=== PATIENT | male | born 1990 | race Hispanic/Latino ===

== ENCOUNTER 2018-04-13 21:49 | Inpatient (IN) | payer MEDICAID, SELFPAY ==
[2018-04-13 22:57] LABS: #Eosinphils 0.2 thou/uL (0.0-0.7); #Lymphocytes 1.1 thou/uL (1.20-3.40); #Monocytes 0.3 thou/uL (0.11-0.59); #Neutrophils 3.6 thou/uL (1.40-6.50); %Basophils 0.7 % (0.0-1.0); %Eosinophils 2.9 % (0.0-10.0); %Lymphocytes 21.2 % (21.0-51.0); %Monocytes 5.7 % (0.0-10.0); %Neutrophils 69.5 % (42.0-75.0); Mean Corpuscular HGB CONC 34.4 g/dL (32.0-36.0); Mean Corpuscular Hemoglobin 29.4 pg (27.0-31.0); Mean Corpuscular Volume 85.3 fL (78.0-98.0); Mean Platelet Volume 9.1 fL (7.4-10.4); PLT Morphology Comment Appears Decreased; Platelet Count 68 thou/uL (130-400); RBC Distribution Width 12.9 % (11.5-14.5); White Blood Cell (WBC) Count 5.2 thou/uL (4.8-10.8)
[2018-04-13 23:06] LABS: ALT (SGPT) 8 U/L (8-55); AST (SGOT) 9 U/L (5-34); Albumin 3.7 g/dL (3.5-5.0); Alkaline Phosphatase 68 U/L (40-150); Anion Gap 27 mmol/L (10-20); Bilirubin, Total 0.5 mg/dL (0.2-1.2); Calcium 7.4 mg/dL (7.8-10.44); Chloride 106 mmol/L (98-107); Globulin 2.5 g/dL (2.4-3.5); Glucose 99 mg/dL (70-105); Potassium 5.4 mmol/L (3.5-5.1); Protein, Total 6.2 g/dL (6.0-8.3); Sodium 136 mmol/L (136-145)
[2018-04-13 23:10] LABS: Carbon Dioxide 8 mmol/L (22-29)
[2018-04-13 23:18] LABS: BUN (Urea Nitrogen) 205 mg/dL (8.9-20.6)
[2018-04-13 23:41] LABS: Calc. Creatinine Clearance 0 mL/min (70-130); Estimated GFR-MDRD 2
[2018-04-14 00:08] LABS: Base Excess-Venous -17.8 mmol/L (0 (+/- 2.5)); Bicarbonate (HCO3v) 8.6 mmol/L (1.0-85.0); CO2 Tension (PvCO2) 21.9 mmHg (41.0-51.0); Hemoglobin - Calc 3.5 g/dL (12.0-18.0); O2 Tension (PvO2) 105.4 mmHg (35.0-45.0); Potassium 5.2 mmol/L (3.4-4.7); T. Carbon Dioxide 9.3 mmol/L (1.0-85.0); pH (Venous) 7.202 (7.35-7.45); vO2 Saturation-calc 96.8 % (94-98)
[2018-04-14] MEDS ORDERED: Ondansetron PF 4 MG/2 ML Vial IVP PRN (01:17)
[2018-04-14] MEDS ORDERED: Acetaminophen 325 MG TAB PO PRN (01:17)
[2018-04-14] MEDS ORDERED: Ondansetron ODT 4 MG TAB SL PRN (01:17)
[2018-04-14 01:25] VITALS: BMI 21.5
--- NOTE | 2018-04-14 05:20 | HP ---
DATE OF ADMISSION: 04/14/2018 CHIEF COMPLAINT: Bleeding gums. HISTORY OF PRESENT ILLNESS: This is a 28-year-old male with past medical history significant for end-stage renal disease on hemodialysis, hypertension presenting with chief complaint of bleeding gums. Per patient and patient's , patient has been having end-stage renal disease in the past and he was seen by seam steamer at [facility]. Patient was receiving hemodialysis and patient does not have insurance and also patient is undocumented immigrant, so patient has now decided that he is going to go to [place] to receive care since patient has not been able to acquire insurance in the [place]. At this point, patient is having bleeding gums, which has been ongoing for the past couple of days. Per the , patient was told that his platelets were low in the past. However, since patient was going to go to [place] for treatment. Patient has not followed up with any treatment in the [place], but since patient's gums are not bleeding profusely and patient is also having blood in the stools. Patient has presented to our hospital to be evaluated. Currently, patient denies any fever, nausea, vomiting, chest pain, palpitations, abdominal pain, dysuria, hematuria, diarrhea, or constipation but admits to bleeding gums , blood in the stool, generalized weakness. REVIEW OF SYSTEMS: Positive for bleeding gums, blood in the stool, generalized weakness. otherwise as documented in the HPI, all other systems reviewed and are negative PAST MEDICAL HISTORY: Hemodialysis, hypertension. PAST SURGICAL HISTORY: Inguinal hernia repair. PSYCHIATRIC HISTORY: No psych history. FAMILY HISTORY: Reviewed and noncontributory to this visit. ALLERGIES: No known drug allergies. MEDICATIONS: Patient takes Calciferol. PHYSICAL EXAMINATION: VITAL SIGNS: Blood pressure is 177/115, pulse of 86, respiratory rate of 18, temperature of 99.2, O2 saturation of 100. GENERAL APPEARANCE: Patient is lying in bed, does not appear to be in any acute distress. Patient is able to speak in full sentences. Patient is alert, oriented x3. Patient is Indian speaking. HEENT: Normocephalic, atraumatic. Pupils are equally round and reactive to light. Extraocular movements are intact. No scleral icterus. Patient has conjunctival pallor. Mucous membranes are dry. NECK: No JVD. Full range of motion, supple. Trachea is midline. LUNGS: Clear to auscultation bilaterally. No wheezing, no rales, no rhonchi is appreciated. CARDIAC: Positive S1, S2. Regular rate and rhythm. Patient did have a flow murmur that can be appreciated. ABDOMEN: Soft, nontender, nondistended. Positive bowel sounds in all quadrants. EXTREMITIES: 5/5 upper extremity strength and 5/5 lower extremity strength, weak pulses bilaterally at the upper and lower extremities. NEUROLOGIC: Cranial nerves II through XII grossly intact. No neurologic deficits noted. SKIN: Warm, dry, and patient is pale. LABORATORY DATA: In the ED, patient's WBC 5.2, hemoglobin is 5.0, hematocrit is 14.5, MCV is 85.3, RDW is 12.9, platelet count is 68. VBG: pH 7.2, pCO2 is 21.9, pO2 is 105. Chemistry: Sodium is 136, potassium is 5.4, chloride is 106 , carbon dioxide of 8, anion gap of 27, BUN is 205, creatinine is 25.0. GFR of 2. BNP 1477.2. Creatine kinase is 271. ASSESSMENT AND PLAN: This is a 28-year-old male with past medical history significant for end-stage renal disease on hemodialysis, currently being admitted for: 1. Anemia of acute blood loss. Patient's hemoglobin is currently 5.0. At this point, patient has been transfused 2 units. We will try and get hemoglobin above 8. We will continue to monitor the patient. 2. Normocytic anemia most likely combination of anemia of chronic inflammation and iron deficiency anemia. We will start the patient on p.o. iron. We will continue to monitor the patient. At this point, we cannot do anemia workup since patient has received first dose of PRBCs. 3. Bleeding gums, most likely secondary to thrombocytopenia. Patient's platelet is 68,000 and patient is spontaneously bleeding. At this point, we have consulted Hematology/Oncology for further workup seems that patient has probably an autoimmune disease, which needs to be worked up. Per the patient, he is willing to go to [place] to get workup. Patient might need platelet transfusion prior to Shiley placement for hemodialysis since patient is acutely bleeding. 4. End-stage renal disease on hemodialysis. Patient states that he received dialysis at [facility] in the past. At this point, he is not receiving dialysis. Patient will need a Shiley placement and patient will need stat dialysis, but at this point due to the fact that patient's hemoglobin is 5.0 and patient platelets is 68,000, patient has spontaneous bleeding. We will transfuse patient's blood and we will get Hematology/Oncology and patient will need platelet transfusion. Prior to Shiley placement and eventually dialysis, we have consulted Nephrology will follow up with their recommendations. We will continue to monitor the patient closely. 5. History of hypertension, not on any medications. Patient's blood pressure is uncontrolled at this time, but we will give the patient blood pressure medication as needed to control his blood pressure. Patient is now currently admitted to the [facility]. Patient will be monitored closely. 6. Deep venous thrombosis and gastrointestinal prophylaxis. We will do SCDs and we will continue to monitor the patient closely. ISIS
[2018-04-14 08:49] LABS: #Eosinphils 0.1 thou/uL (0.0-0.7); #Lymphocytes 0.8 thou/uL (1.20-3.40); #Monocytes 0.4 thou/uL (0.11-0.59); #Neutrophils 4.4 thou/uL (1.40-6.50); %Basophils 0.6 % (0.0-1.0); %Eosinophils 0.9 % (0.0-10.0); %Lymphocytes 14.7 % (21.0-51.0); %Monocytes 6.4 % (0.0-10.0); %Neutrophils 77.4 % (42.0-75.0); Hemoglobin 6.8 g/dL (14.0-18.0); Mean Corpuscular HGB CONC 34.6 g/dL (32.0-36.0); Mean Corpuscular Hemoglobin 29.5 pg (27.0-31.0); Mean Corpuscular Volume 85.3 fL (78.0-98.0); Mean Platelet Volume 9.3 fL (7.4-10.4); Platelet Count 51 thou/uL (130-400); RBC Distribution Width 13.8 % (11.5-14.5); White Blood Cell (WBC) Count 5.7 thou/uL (4.8-10.8)
[2018-04-14 08:54] LABS: Anion Gap 29 mmol/L (10-20); Calc. Creatinine Clearance 4 mL/min (70-130); Calcium 7.4 mg/dL (7.8-10.44); Carbon Dioxide 8 mmol/L (22-29); Chloride 107 mmol/L (98-107); Estimated GFR-MDRD 2; Glucose 90 mg/dL (70-105); Magnesium 2.1 mg/dL (1.6-2.6); Potassium 4.8 mmol/L (3.5-5.1); Sodium 139 mmol/L (136-145)
[2018-04-14 08:59] LABS: BUN (Urea Nitrogen) 202 mg/dL (8.9-20.6)
[2018-04-14] MEDS ORDERED: Prevnar 13-Val Conj/PF 0.5 ML SYRINGE IM ONE (09:00)
[2018-04-14] MEDS ORDERED: Lidocaine 1% (PF) 30 ML VIAL ONE (09:49)
[2018-04-14 11:18] LABS: HBSAg Index 0.22 S/CO (0-0.99); Hep B Surf AB Non-Reactive (NonReactive); Hep B Surf Ag Non-Reactive S/CO (NonReactive)
--- NOTE | 2018-04-14 11:31 | OP ---
PREOPERATIVE DIAGNOSIS: Acute renal failure. SURGEON: Elia Jensen M.D. PROCEDURE PERFORMED: Trialysis catheter placement. INDICATIONS: A 28-year-old male with acute renal failure needs dialysis. FINDINGS: Good placement, right femoral vein. DESCRIPTION OF PROCEDURE: After informed consent was obtained, the patient was placed in the supine position. His groin was prepped and draped in the usual fashion. Local anesthesia infiltrated subcu taneously and deep. An introducer needle was inserted into the right femoral vein. Good backflow of venous blood. J-wire threaded easily. The skin was incised with an 11 blade and then a series of d ilators used to dilate the subcu, then the pre-flushed dialysis catheter was inserted over the wire. The wire was removed. Each of the ports aspirated. Good backflow of venous blood, flushed with igor ine. The catheter was sutured in place with 3-0 silk suture. Sterile bandage applied. The patient tolerated the procedure well.
--- NOTE | 2018-04-14 11:53 | PDOC.PN ---
- Subjective Encounter Start Date: 04/14/18 Encounter Start Time: 10:00 Subjective: awake, no chest pain or palp -: recieved 2 u prbc -: has been on HD from august of this year, does not know cause of his renal fa - Objective Resuscitation Status: Resuscitation Status FULL:Full Resuscitation MAR Reviewed: Yes Vital Signs & Weight: Vital Signs (12 hours) Temp Pulse Pulse Resp BP BP Pulse Ox 04/14/18 07:59 100 04/14/18 07:33 99 04/14/18 07:26 98.3 F 97 18 160/106 H 100 04/14/18 05:37 98.2 F 88 20 163/103 H 04/14/18 04:00 99.0 F 82 19 156/103 H 96 04/14/18 02:37 98.6 F 81 22 H 179/108 H 100 04/14/18 02:16 98.2 F 93 20 155/96 H 04/14/18 01:10 98.6 F 90 20 186/119 H 100 Weight Weight 133 lb 7 oz I&O: 04/13/18 04/14/18 04/15/18 06:59 06:59 05:59 Intake Total 350 Balance 350 Result Diagrams: 04/14/18 07:48 04/14/18 07:48 Phys Exam - Physical Examination HEENT: PERRLA, moist MMs Neck: no JVD, supple Respiratory: no wheezing, no rales Cardiovascular: RRR, no significant murmur Gastrointestinal: soft, no distention, positive bowel sounds Musculoskeletal: no edema, pulses present Neurological: non-focal, moves all 4 limbs Psychiatric: A&O x 3 Dx/Plan (1) Volume overload Code(s): E87.70 - FLUID OVERLOAD, UNSPECIFIED Status: Acute (2) Uremia Code(s): N19 - UNSPECIFIED KIDNEY FAILURE Status: Acute (3) ESRD (end stage renal disease) Code(s): N18.6 - END STAGE RENAL DISEASE Status: Chronic (4) Acute blood loss anemia Code(s): D62 - ACUTE POSTHEMORRHAGIC ANEMIA Status: Acute (5) Chronic anemia Code(s): D64.9 - ANEMIA, UNSPECIFIED Status: Chronic (6) Chronic idiopathic thrombocytopenia Code(s): D69.3 - IMMUNE THROMBOCYTOPENIC PURPURA Status: Chronic (7) Metabolic acidosis Code(s): E87.2 - ACIDOSIS Status: Acute - Plan last HD was on of last month -: is getting dialysis access by for HD -: further w/u for renal failure per nephr adv -: to transfuse 1 more u with HD today -: prognosis guarded with no insurance and organ failure * . Review of Systems - Medications/Allergies Allergies/Adverse Reactions: Allergies Allergy/AdvReac Type Severity Reaction Status Date / Time No Known Allergies Allergy Verified 04/14/18 01:23 Medications: Current Medications Sodium Chloride (Flush - Normal Saline) 10 ml IVF Q12HR CARMEL Last Admin: 04/14/18 09:07 Dose: 10 ml Sodium Chloride (Flush - Normal Saline) 10 ml IVF PRN PRN PRN Reason: Saline Flush Last Admin: 04/14/18 04:49 Dose: 10 ml
--- NOTE | 2018-04-14 12:30 | CON ---
DATE OF PROCEDURE: 04/14/2018 PREOPERATIVE DIAGNOSIS: Acute renal failure, in need of urgent dialysis. SURGEON: Elia Jensen M.D. PROCEDURE PERFORMED: Trialysis dialysis catheter placement. INDICATIONS: The patient is a 28-year-old male who was admitted with nausea, vomiting and acute shaheen l failure, in need of urgent dialysis. PAST MEDICAL HISTORY: Significant for hypertension as well as end-stage renal failure. PAST SURGICAL HISTORY: Inguinal hernia repair. MEDICATION: Calciferol. ALLERGIES: No known drug allergies. PHYSICAL EXAMINATION: GENERAL APPEARANCE: He is a 28-year-old male who is thin. He is nauseated. VITAL SIGNS: His temperature is 98.3, pulse 97, blood pressure 160/106. He is a thin male in no akhil arent distress. HEENT: Unremarkable. LUNGS: Clear. HEART: Regular rate and rhythm. ABDOMEN: Soft, nondistended. Well-healed surgical scar right groin. ASSESSMENT: Acute renal failure. Plan is placement of a Trialysis catheter.
[2018-04-14 13:00] LABS: INR-International Normal Ratio 1.3; Prothrombin Time 16.2 SEC (12.0-14.7)
[2018-04-14 13:01] LABS: PTT 34.1 SEC (22.9-36.1)
[2018-04-14] MEDS ORDERED: Desmopressin Acetate 4 mcg/ml (1ml Chg) 10ml Vial SC SCH (16:30)
[2018-04-14] MEDS ORDERED: Morphine 2 MG/ML SYRINGE SLOW IVP SCH (17:30)
[2018-04-14 18:14] LABS: Hemoglobin 6.7 g/dL (14.0-18.0); Platelet Count 102 thou/uL (130-400)
--- NOTE | 2018-04-14 18:25 | CON ---
NEPHROLOGY CONSULT NOTE DATE OF CONSULTATION: 04/14/2018 CONSULTING PHYSICIAN: Juarez Austin DO. REASON FOR CONSULT: End-stage renal disease evaluation. REASON FOR ADMISSION: Bleeding gums. HISTORY OF PRESENT ILLNESS: This is a 28-year-old male with a history of hypertension, end-stage renal disease who came to the hospital with bleeding gums and was found to have elevated creatinine and severe metabolic acidosis. Apparently, the patient is in need for dialysis, but undocumented and not getting dialysis frequently. He was being followed by [facility], Nephrology. He had dialysis a few weeks back. Patient has been getting inpatient dialysis and will be discharged home. The patient had planned to go to [place] to get regular treatments. No fever or chills. No chest pain reported. Patient has been having nauseated and has bleeding gums. PAST MEDICAL HISTORY: Positive for end-stage renal disease and hypertension. PAST SURGICAL HISTORY: Inguinal hernia repair, dialysis access placement. HOME MEDICATIONS: Calciferol. ALLERGIES: No known drug allergies. SOCIAL HISTORY: No smoking, alcohol, or illicit drug abuse. FAMILY HISTORY: No history of kidney disease. REVIEW OF SYSTEMS: The following complete review of systems was negative, unless otherwise mentioned in the HPI or below: Constitutional: Weight loss or gain, ability to conduct usual activities. Skin: Rash, itching. Eyes: Double vision, pain. ENT/Mouth: Nose bleeding, neck stiffness, pain, tenderness. Cardiovascular: Palpitations, dyspnea on exertion, orthopnea. Respiratory: Shortness of breath, wheezing, cough, hemoptysis, fever or night sweats. Gastrointestinal: Poor appetite, abdominal pain, heartburn, nausea, vomiting, constipation, or diarrhea. Genitourinary: Urgency, frequency, dysuria, nocturia. Musculoskeletal: Pain, swelling. Neurologic/Psychiatric: Anxiety, depression. Allergy/Immunologic: Skin rash, bleeding tendency. PHYSICAL EXAMINATION: GENERAL: This is a thin-built male, in no apparent distress. VITAL SIGNS: Temperature 98.3, pulse 97, respiratory rate 18, blood pressure 160/106. HEENT: Atraumatic, normocephalic. Oral mucosa dry. NECK: Supple. CARDIOVASCULAR: S1, S2 heard. Regular rate and rhythm. RESPIRATORY: Clear. GASTROINTESTINAL: Abdomen is soft. MUSCULOSKELETAL: 1+ edema. DERMATOLOGIC: No skin rash. NEUROLOGIC: Alert, awake. PSYCHIATRIC: Mood and affect normal. LABORATORY DATA: Hemoglobin is 5.0, potassium 5.4, bicarbonate is 8, BUN is 205. Creatinine is 25. ASSESSMENT AND PLAN: 1. End-stage renal disease. We will consult Surgery for access placement. We will have dialysis, might need daily dialysis for 2-3 days. 2. Severe metabolic acidosis. We will have dialysis. 3. Mild hyperkalemia. 4. Azotemia. 5. Uremic bleeding. Continue dialysis. 6. Anemia. Agree with blood transfusion. Prognosis guarded. Further workup of the renal function or renal disease will be deferred to the primary hydraulic dredge operator at [facility]. The patient was advised to have plans for her regular maintenance dialysis. Thank you for the consult. We will follow. ISIS
--- NOTE | 2018-04-14 19:26 | CON ---
DATE OF CONSULTATION: 04/14/2018 HISTORY OF PRESENT ILLNESS: Mr. Jean Rosado is a 28-year-old gentleman who was recently diagnos ed with renal failure. He is from [place] and does not have dialysis access regularly. He recently w as in [facility]. He was admitted yesterday and a dialysis catheter was placed by [facility]. He is tentatively scheduled for dialysis. He presented with complaints of bleeding gum s. This is not a new complaint for him. PAST MEDICAL HISTORY: Remarkable for hypertension and a herniorrhaphy in the past. SOCIAL HISTORY: Nonsmoker, nondrinker, nondrug user. ALLERGIES: No drug allergies. It is unclear what workup has been done over at [facility]. He was seen by the laborer tan house radha herman there. He was hypertensive on admission. PHYSICAL EXAMINATION: VITAL SIGNS: Blood pressure is still elevated at 160/106, he is afebrile, heart rates in the 90s, re spiratory rate 18. HEAD AND NECK: Unremarkable. He does have some bleeding gums. NECK: Supple. LUNGS: Clear. HEART: Regular rhythm. ABDOMEN: Soft. EXTREMITIES: Without clubbing, cyanosis, or edema. LABORATORY DATA: White count 5.7, hemoglobin 6.8, MCV is 85, platelets 51. Sodium 139, potassium 4. 8, chloride 107, bicarbonate 8, BUN 202, creatinine 24.4. IMPRESSION: 1. Renal failure. 2. Lack of dialysis. 3. Thrombocytopenia of unclear etiology, he has been seen by Hematology. 4. Status post placement of a femoral venous catheter if it is oozing. He will receive platelets to day, if that does not stop oozing perhaps DDAVP. I will be happy to follow with the other physicians caring for Mr. Pena. He is in a terrible pl [place]. The etiology of his renal failure at 28 years of age is unclear at this time unless this all simply r elated on treated hypertension. Medical records from [facility] would be helpful.
--- NOTE | 2018-04-14 22:50 | CON ---
DATE OF CONSULTATION: 04/14/2018 REASON FOR CONSULTATION: Thrombocytopenia. HISTORY OF PRESENT ILLNESS: The patient is a 28-year-old man admitted through the emergency room for end-stage renal disease and symptoms secondary to renal failure. He was told of some type of kidney problem at [facility] in [place] in August of this year. He was admitted to [facility] in [place] about 3 weeks ago for 3-4 days and was dialyzed at that time. He was told he was in renal failure, but no post discharge preparations were made for subsequent followup. On the day of admission, he presented to the emergency room complaining of bleeding gums. Laboratory studies showed a hemoglobin of 5.0, white cell count 5.2, and platelet count 68,000. The white blood cell differentials were essentially normal except for a slight decrease in lymphocyte count. Chemistries showed sodium 136, potassium 5.4, chloride 106 , bicarbonate 8. The creatinine was greater than 25 and BUN 205. Liver function studies were normal. The patient was admitted to the Intensive Care Unit and preparations are being made for hemodialysis. He has had a dialysis catheter placed in the groin. By history, there is no prior knowledge of a blood disorder. There is no family history of kidney disease. I am asked to see the patient at this time to provide further management and recommendations regarding the thrombocytopenia. ALLERGIES: None. MEDICATIONS: None on admission. MEDICAL ILLNESS: There is a history of hypertension, but no history of kidney disease or diabetes mellitus. PAST SURGICAL HISTORY: He has had inguinal hernia repair in the remote past. FAMILY HISTORY: The patient is 28 years old and has no prior history of kidney disease or hematologic disorders. SOCIAL HISTORY: He is and has three children, five, two and 6 months old. He works [employer]. He is not a legal resident of the [place]. He is planning to return to [place] for further treatment of his end-stage kidney disease when arrangements can be made. REVIEW OF SYSTEMS: Except as mentioned in the history of present illness, he has fatigue, but no history of gastrointestinal, cardiopulmonary, genitourinary or neurological complaints. PHYSICAL EXAMINATION: VITAL SIGNS: Temperature 98.2, pulse 97 and regular, respirations 18, blood pressure 163/103. GENERAL: The patient is a well-developed and well-nourished man in no acute distress. He is alert, oriented, and cooperative. He is not acutely ill. HEENT: The extraocular movements are intact. Pupils equal, round, and reactive to light. There is some minimal gum bleeding. NECK: Supple. LUNGS: Clear. CARDIOVASCULAR: Regular rate and rhythm without murmur, rub, gallop or click. ABDOMEN: No tenderness, organomegaly, masses, bruits or ascites. EXTREMITIES: No clubbing, cyanosis or edema. SKIN: Normal. LYMPH: No adenopathy. MUSCULOSKELETAL: No active arthritis. NEUROLOGIC: No focal findings and the cranial nerves II-XII are grossly intact. LABORATORY DATA: See history of present illness. IMAGING DATA: No imaging has been performed. IMPRESSION: 1. End-stage renal disease, etiology unknown. 2. Nonspecific thrombocytopenia with no evidence of a primary hematologic disorder. COMMENTS AND RECOMMENDATIONS: I did review the peripheral blood smear and there is no evidence of microangiopathy. The platelet count that is modestly decreased is confirmed. There is no clumping. There are no significant white blood cell abnormalities. At this point, the thrombocytopenia is nonspecific and I have recommended coagulation studies, however. The bleeding diathesis is more likely secondary to qualitative platelet defect seen in patients with uremia as a platelet count of 60-70 thousand should be adequate for hemostasis. If there is concern regarding increased bleeding or in preparation for surgical procedures, I would recommend platelet transfusion as needed. Thanks very much for providing for allowing me to provide my recommendations. I will follow with you. ISIS
[2018-04-14] MEDS: Acetaminophen 325 MG TAB PO PRN (23:33)
[2018-04-15] MEDS ORDERED: Heparin 1,000 UNITS/ML VIAL ONE (07:10)
[2018-04-15 07:50] LABS: Hemoglobin 7.1 g/dL (14.0-18.0); Mean Corpuscular HGB CONC 35.6 g/dL (32.0-36.0); Mean Corpuscular Hemoglobin 30.3 pg (27.0-31.0); Mean Corpuscular Volume 85.2 fL (78.0-98.0); RBC Distribution Width 13.7 % (11.5-14.5); Red Blood Cell (RBC) Count 2.33 mill/uL (4.70-6.10); White Blood Cell (WBC) Count 5.4 thou/uL (4.8-10.8)
[2018-04-15 07:57] LABS: Anion Gap 22 mmol/L (10-20); Calc. Creatinine Clearance 5 mL/min (70-130); Calcium 7.5 mg/dL (7.8-10.44); Carbon Dioxide 19 mmol/L (22-29); Chloride 101 mmol/L (98-107); Estimated GFR-MDRD 3; Glucose 94 mg/dL (70-105); Potassium 3.5 mmol/L (3.5-5.1); Sodium 138 mmol/L (136-145)
[2018-04-15 08:09] LABS: BUN (Urea Nitrogen) 128 mg/dL (8.9-20.6)
[2018-04-15 08:46] LABS: #Basophils 0.1 thou/uL (0.0-0.2); #Eosinphils 0.2 thou/uL (0.0-0.7); #Lymphocytes 1.2 thou/uL (1.20-3.40); #Monocytes 0.5 thou/uL (0.11-0.59); #Neutrophils 3.6 thou/uL (1.40-6.50); %Eosinophils 3.3 % (0.0-10.0); %Lymphocytes 21.7 % (21.0-51.0); %Monocytes 8.4 % (0.0-10.0); %Neutrophils 65.7 % (42.0-75.0); Acanthocytes SLIGHT = 1-5 cells (100X) (None Seen); Burr Cells SLIGHT = 2-5 cells (100X) (0-1/hpf); MDiff Complete? YES; Mean Platelet Volume 9.1 fL (7.4-10.4); Microcytosis SLIGHT = 6-15 cells (100X) (0-5/hpf); PLT Morphology Comment Appears Decreased; Platelet Count 77 thou/uL (130-400)
--- NOTE | 2018-04-15 10:14 | PDOC.PN ---
- Subjective Encounter Start Date: 04/15/18 Encounter Start Time: 09:15 Subjective: no bleeding from gums or groin this am -: no sob - Objective Resuscitation Status: Resuscitation Status FULL:Full Resuscitation MAR Reviewed: Yes Vital Signs & Weight: Vital Signs (12 hours) Temp Pulse Resp BP Pulse Ox 04/15/18 07:37 97 04/15/18 07:30 99.0 F 93 152/96 H 100 04/15/18 04:20 98.1 F 82 20 137/87 100 Weight Weight 124 lb 3 oz I&O: 04/14/18 04/15/18 04/16/18 07:59 06:59 06:59 Intake Total Output Total Balance Result Diagrams: 04/15/18 07:28 04/15/18 07:28 Phys Exam - Physical Examination HEENT: PERRLA, moist MMs Neck: no JVD, supple Respiratory: no wheezing, no rales Cardiovascular: RRR, no significant murmur Gastrointestinal: soft, non-tender, positive bowel sounds Musculoskeletal: no edema, pulses present Neurological: non-focal, moves all 4 limbs Psychiatric: normal affect, A&O x 3 Dx/Plan (1) Volume overload Code(s): E87.70 - FLUID OVERLOAD, UNSPECIFIED Status: Acute (2) Uremia Code(s): N19 - UNSPECIFIED KIDNEY FAILURE Status: Resolved (3) ESRD (end stage renal disease) Code(s): N18.6 - END STAGE RENAL DISEASE Status: Chronic (4) Acute blood loss anemia Code(s): D62 - ACUTE POSTHEMORRHAGIC ANEMIA Status: Acute (5) Chronic anemia Code(s): D64.9 - ANEMIA, UNSPECIFIED Status: Chronic (6) Chronic idiopathic thrombocytopenia Code(s): D69.3 - IMMUNE THROMBOCYTOPENIC PURPURA Status: Chronic (7) Metabolic acidosis Code(s): E87.2 - ACIDOSIS Status: Acute - Plan recieved a total of 3 u prbc and 1 of platelet -: 1 dose of Ddavp as well, hemostable -: for HD today, had dialysis yesterday -: is amb in room and eating well -: may tx to med/tele * . Review of Systems - Medications/Allergies Allergies/Adverse Reactions: Allergies Allergy/AdvReac Type Severity Reaction Status Date / Time No Known Allergies Allergy Verified 04/14/18 01:23 Medications: Current Medications Acetaminophen (Tylenol) 650 mg PO Q6H PRN PRN Reason: Fever/MILD Pain 1-3 Last Admin: 04/14/18 23:33 Dose: 650 mg Sodium Chloride (Flush - Normal Saline) 10 ml IVF Q12HR CARMEL Last Admin: 04/15/18 08:36 Dose: 10 ml Sodium Chloride (Flush - Normal Saline) 10 ml IVF PRN PRN PRN Reason: Saline Flush Last Admin: 04/14/18 04:49 Dose: 10 ml
[2018-04-15] MEDS ORDERED: Heparin 10,000 UNITS/ 10 ML VIAL ONE (13:07)
--- NOTE | 2018-04-15 13:36 | PRG ---
DATE OF SERVICE: 04/15/2018 Subjective: Patient was seen and examined at bedside and overnight events noted. Patient denies any shortness of breath or chest pain or palpitation. No history of nausea or vomiting or diarrhea or fever or chills or cramps. Objective: General: This is a thin-built male, in no apparent distress. Vital signs: Temperature 98.4. Pulse 98. Respiratory rate 18. Blood pressure 152/99. HEENT: Atraumatic, normocephalic, Oral mucosa is moist Neck: Supple Cardiovascular: S1S2 heard, Rate and rhythm regular Respiratory: Clear to auscultation Gastrointestinal: Abdomen is soft Musculoskeletal : No tenderness, No edema Dermatologic : No skin rash Neurologic: Alert and awake and oriented X3, No focal neurologic deficits. Moving all the extremities . Psychiatric: Mood and affect normal Laboratory data: Potassium is 3.5, BUN is 128, creatinine is . Assessment and Plan: 1. End-stage renal disease, no access for dialysis due to financial reasons and lack of insurance. The patient will be dialyzed for a few days and will be discharged . The patient was advised to follow up with [facility] as outpatient. 2. Severe metabolic acidosis, mild hyperkalemia. 3. Azotemia. 4. Uremic bleeding. Agree with DDAVP. 4. Anemia, status post transfusion. 5. Prognosis guarded. The patient was advised to follow up with [facility] for further workup and care.
--- NOTE | 2018-04-15 14:40 | PRG ---
DATE OF SERVICE: 04/15/2018 SUBJECTIVE: Mr. Rosado is no longer bleeding from his gums. He denies bleeding from anywhere. He i s no longer oozing from his dialysis catheter. He is tentatively for dialysis again today. OBJECTIVE: VITAL SIGNS: He is on room air sats of 97-100, he is afebrile, blood pressure this morning was 152/9 9, after lunch 182/103. LUNGS: Clear. CARDIOVASCULAR: Regular rhythm. ABDOMEN: Soft. IMPRESSION: 1. Renal failure. 2. Thrombocytopenia of unclear etiology. 3. Anemia in part of chronic disease. PLAN: He will receive another unit of packed cells today with dialysis since his hemoglobin is 7.1. I have written a note stating that he needs to urgently get back to [place]. I am told that this will help facilitate transfer back to [place], so he can get established with a ship captain for dialysis. He is stable to move out of the intermediate care unit in my opinion.
[2018-04-15] MEDS: Acetaminophen 325 MG TAB PO PRN (17:06)
[2018-04-16] MEDS ORDERED: Calcitriol 0.25 MCG CAP PO SCH ×2 (07:30→09:00)
[2018-04-16] MEDS: Ferrous Sulfate 325 MG TAB PO SCH ×2 (08:28→18:07)
[2018-04-16] MEDS: hydrALAZINE 25 MG TAB PO SCH ×3 (08:28→22:31)
[2018-04-16] MEDS: cloNIDine 0.1 MG TAB PO SCH ×3 (08:40→22:32)
--- NOTE | 2018-04-16 11:21 | PDOC.PN ---
- Subjective Encounter Start Date: 04/16/18 Encounter Start Time: 09:15 Subjective: no bleeding or sob, feels better - Objective Resuscitation Status: Resuscitation Status FULL:Full Resuscitation MAR Reviewed: Yes Vital Signs & Weight: Vital Signs (12 hours) Temp Pulse Resp BP Pulse Ox 04/16/18 10:43 77 18 149/90 H 04/16/18 08:28 72 04/16/18 08:00 98.2 F 72 18 170/108 H 98 04/16/18 04:00 97.7 F 82 14 162/100 H 99 04/15/18 23:54 97.9 F 78 16 162/103 H 99 Weight Weight 126 lb 2 oz I&O: 04/15/18 04/16/18 04/17/18 06:59 06:59 06:59 Intake Total 480 Output Total 325 Balance 155 Result Diagrams: 04/15/18 07:28 04/15/18 07:28 Phys Exam - Physical Examination HEENT: PERRLA, moist MMs Neck: no JVD, supple Respiratory: no wheezing, no rales Cardiovascular: RRR, no significant murmur Gastrointestinal: soft, non-tender, positive bowel sounds Musculoskeletal: no edema, pulses present Neurological: non-focal, moves all 4 limbs Psychiatric: normal affect, A&O x 3 Dx/Plan (1) Volume overload Code(s): E87.70 - FLUID OVERLOAD, UNSPECIFIED Status: Acute Comment: resolved (2) Uremia Code(s): N19 - UNSPECIFIED KIDNEY FAILURE Status: Resolved (3) ESRD (end stage renal disease) Code(s): N18.6 - END STAGE RENAL DISEASE Status: Chronic (4) Acute blood loss anemia Code(s): D62 - ACUTE POSTHEMORRHAGIC ANEMIA Status: Acute (5) Chronic anemia Code(s): D64.9 - ANEMIA, UNSPECIFIED Status: Chronic (6) Chronic idiopathic thrombocytopenia Code(s): D69.3 - IMMUNE THROMBOCYTOPENIC PURPURA Status: Chronic (7) Metabolic acidosis Code(s): E87.2 - ACIDOSIS Status: Acute - Plan is for repeat HD today -: had 3 hr session yesterday -: h/h and platelets are holding up with no active bleeding -: oral iron, clonidine and hydralazine -: dc plan per nephrology adv * . Review of Systems - Medications/Allergies Allergies/Adverse Reactions: Allergies Allergy/AdvReac Type Severity Reaction Status Date / Time No Known Allergies Allergy Verified 04/14/18 01:23 Medications: Current Medications Acetaminophen (Tylenol) 650 mg PO Q6H PRN PRN Reason: Fever/MILD Pain 1-3 Last Admin: 04/15/18 17:06 Dose: 650 mg Calcitriol (Rocaltrol) 0.5 mcg PO Q2D@0900 [facility] Last Admin: 04/16/18 08:29 Dose: 0.5 mcg Clonidine (Catapres) 0.1 mg PO TID [facility] Last Admin: 04/16/18 08:40 Dose: 0.1 mg Ferrous Sulfate (Feosol) 325 mg PO BID-[facility] Last Admin: 04/16/18 08:28 Dose: 325 mg Hydralazine HCl (Apresoline) 25 mg PO TID [facility] Last Admin: 04/16/18 08:28 Dose: 25 mg Sodium Chloride (Flush - Normal Saline) 10 ml IVF Q12HR [facility] Last Admin: 04/16/18 08:39 Dose: 10 ml Sodium Chloride (Flush - Normal Saline) 10 ml IVF PRN PRN PRN Reason: Saline Flush Last Admin: 04/14/18 04:49 Dose: 10 ml
--- NOTE | 2018-04-16 11:51 | PRG ---
DATE OF SERVICE: 04/16/2018 SUBJECTIVE: This is a 28-year-old gentleman being seen for end-stage renal disease. Patient denies any nausea, vomiting, or chest pain. OBJECTIVE: See above. GENERAL: Patient is awake and alert. VITAL SIGNS: Afebrile, pulse 77, breathing at 16, blood pressure 149/90. GENERAL APPEARANCE AND MENTAL STATUS: Fair. HEAD/NECK: Normocephalic. Atraumatic. EYES: EOMI. No deformity. EARS: Clear. No ulcers. NOSE: Intact. No lesions. MOUTH: Clear. No discharge. THROAT: Clear. No exudate. LUNGS: Clear. No crackles. CARDIAC: S1, S2. No rub. ABDOMEN: Benign. BS+. GENITALIA/RECTUM: Falcon absent. BACK/EXTREMITIES: Edema 0+, ulcer. NEUROLOGICAL: Alert and motor intact. SKIN: Rash - bruise. LYMPHATICS: Edema - ulcer. LABORATORY DATA: Labs show hemoglobin is 7.1, creatinine is 18. ASSESSMENT AND RECOMMENDATIONS: 1. Stage 6 chronic kidney disease, plan dialysis. 2. Hypertension, stable. 3. Anemia, stable. 4. Medication based on glomerular filtration rate are appropriate. Consult social scientist for outp atient dialysis setup.
[2018-04-16] MEDS ORDERED: Heparin 10,000 UNITS/ 10 ML VIAL ONE (12:00)
[2018-04-16 12:10] LABS: Hemoglobin 7.4 g/dL (14.0-18.0)
[2018-04-16 12:33] LABS: Anion Gap 13 mmol/L (10-20); BUN (Urea Nitrogen) 77 mg/dL (8.9-20.6); Calc. Creatinine Clearance 7 mL/min (70-130); Calcium 7.7 mg/dL (7.8-10.44); Carbon Dioxide 27 mmol/L (22-29); Chloride 99 mmol/L (98-107); Estimated GFR-MDRD 5; Glucose 89 mg/dL (70-105); Sodium 135 mmol/L (136-145)
[2018-04-17 08:48] VITALS: TEMP 98.1
[2018-04-17] MEDS: Ferrous Sulfate 325 MG TAB PO SCH (09:09)
[2018-04-17] MEDS: hydrALAZINE 25 MG TAB PO SCH (09:12)
[2018-04-17 09:13] VITALS: BP 147/94
[2018-04-17] MEDS: cloNIDine 0.1 MG TAB PO SCH (10:41)
--- NOTE | 2018-04-17 11:03 | PDOC.PN ---
- Subjective Encounter Start Date: 04/17/18 Encounter Start Time: 10:00 Subjective: no sob, feels good -: is amb and eating well - Objective Resuscitation Status: Resuscitation Status FULL:Full Resuscitation MAR Reviewed: Yes Vital Signs & Weight: Vital Signs (12 hours) Temp Pulse Resp BP BP Pulse Ox 04/17/18 10:41 147/94 H 04/17/18 09:12 75 147/94 H 04/17/18 08:00 98.1 F 64 16 151/94 H 97 04/17/18 03:00 97.7 F 81 14 120/70 95 04/16/18 23:28 99.6 F 75 16 147/96 H 98 Weight Weight 121 lb 7 oz I&O: 04/16/18 04/17/18 04/18/18 06:59 06:59 06:59 Intake Total 480 750 Output Total 325 Balance 155 750 Result Diagrams: 04/16/18 12:03 04/16/18 12:03 Phys Exam - Physical Examination HEENT: PERRLA, moist MMs Neck: no JVD, supple Respiratory: no wheezing, no rales Cardiovascular: RRR, no significant murmur Gastrointestinal: soft, non-tender, positive bowel sounds Musculoskeletal: no edema, pulses present Neurological: non-focal, moves all 4 limbs Dx/Plan (1) Volume overload Code(s): E87.70 - FLUID OVERLOAD, UNSPECIFIED Status: Resolved Comment: resolved (2) Uremia Code(s): N19 - UNSPECIFIED KIDNEY FAILURE Status: Resolved (3) ESRD (end stage renal disease) Code(s): N18.6 - END STAGE RENAL DISEASE Status: Chronic (4) Acute blood loss anemia Code(s): D62 - ACUTE POSTHEMORRHAGIC ANEMIA Status: Acute (5) Chronic anemia Code(s): D64.9 - ANEMIA, UNSPECIFIED Status: Chronic (6) Chronic idiopathic thrombocytopenia Code(s): D69.3 - IMMUNE THROMBOCYTOPENIC PURPURA Status: Chronic (7) Metabolic acidosis Code(s): E87.2 - ACIDOSIS Status: Acute - Plan hemostable -: had back to back HD -: pt is planning to go back to [place] per CM along with his family -: may dc home * . Review of Systems - Medications/Allergies Allergies/Adverse Reactions: Allergies Allergy/AdvReac Type Severity Reaction Status Date / Time No Known Allergies Allergy Verified 04/14/18 01:23 Medications: Current Medications Acetaminophen (Tylenol) 650 mg PO Q6H PRN PRN Reason: Fever/MILD Pain 1-3 Last Admin: 04/15/18 17:06 Dose: 650 mg Calcitriol (Rocaltrol) 0.5 mcg PO Q2D@0900 [facility] Last Admin: 04/16/18 08:29 Dose: 0.5 mcg Clonidine (Catapres) 0.1 mg PO TID [facility] Last Admin: 04/17/18 10:41 Dose: Not Given Ferrous Sulfate (Feosol) 325 mg PO BID-[facility] Last Admin: 04/17/18 09:09 Dose: 325 mg Hydralazine HCl (Apresoline) 25 mg PO TID [facility] Last Admin: 04/17/18 09:12 Dose: 25 mg Sodium Chloride (Flush - Normal Saline) 10 ml IVF Q12HR [facility] Last Admin: 04/17/18 09:12 Dose: 10 ml Sodium Chloride (Flush - Normal Saline) 10 ml IVF PRN PRN PRN Reason: Saline Flush Last Admin: 04/14/18 04:49 Dose: 10 ml
--- NOTE | 2018-04-17 13:03 | DIS ---
DATE OF ADMISSION: 04/14/2018 DATE OF DISCHARGE: 04/17/2018 DISCHARGE DISPOSITION: To home. PRIMARY DISCHARGE DIAGNOSES: 1. End-stage renal disease, noncompliant with hemodialysis due to financial issues. 2. Uremia secondary to noncompliance with hemodialysis, resolved. 3. Acute blood loss anemia, status post 3 units packed cell transfusion. 4. Chronic anemia due to renal disease. 5. Severe thrombocytopenia. 6. Metabolic acidosis, resolved. PROCEDURES DONE DURING HOSPITALIZATION: He had a H&H of 5 and 14 on the day of admission. Discharge numbers are 7 and 21, platelet count is 77, MCV 85. Discharge BUN and creatinine of 77 and 11.9. Discharge serum bicarbonate is 27. BNP 1477. Admitting BUN and creatinine was 205 with a creatinine greater than 25. Serum bicarbonate was 8, potassium of 5.4 on admission. HBS antigen nonreactive. INPATIENT CONSULTS: Dr. Locke for Nephrology, Dr. Sinha for Critical Care, Dr. Bang for Hematology. ALLERGIES: No known drug allergies. DISCHARGE MEDICATIONS: Clonidine 0.1 mg p.o. 3 times daily, calcitriol 0.25 mcg 2 capsules as directed, ferrous sulfate 325 mg p.o. twice daily. DISCHARGE PLAN: The patient to follow up with his primary care physician in 1 week. He has plans to go back to [place] this week and will arrange hemodialysis in his [place] [facility]. BRIEF COURSE DURING HOSPITALIZATION: Patient initially came to ER with complaints of bleeding from his gums and was also uremic. The patient was started on hemodialysis from August of this year and not had dialysis from of last month due to no insurance and financial constraints. The patient was uremic along with bleeding from his gums due to low platelets and uremia. He has had back to back hemodialysis done 3 times after his hospitalization. The patient also received 3 units of packed cell transfusion and 1 pack of platelets as well. He remained hemodynamically stable. Initially, the patient was in IMCU and later downgraded to medical floor. The patient has informed lead case manager that he is planning to go back to [place] this week along with his family and arrange hemodialysis/renal transplant in his [place] [facility]. His overall prognosis is guarded if the patient continues to be noncompliant with dialysis. Please see a [id number] documentation on [facility] for the day of discharge. [facility]
--- NOTE | 2018-04-17 13:06 | PRG ---
DATE OF SERVICE: 04/17/2018 SUBJECTIVE: A 28-year-old gentleman being seen for end-stage renal disease. The patient denies any nausea, vomiting, or chest pain. OBJECTIVE: See above. The patient is awake. VITAL SIGNS: Afebrile, pulse 75, breathing 16, blood pressure 147/94. GENERAL APPEARANCE AND MENTAL STATUS: Fair. HEAD/NECK: Normocephalic. Atraumatic. EYES: EOMI. No deformity. EARS: Clear. No ulcers. NOSE: Intact. No lesions. MOUTH: Clear. No discharge. THROAT: Clear. No exudate. LUNGS: Clear. No crackles. CARDIAC: S1, S2. No rub. ABDOMEN: Benign. BS+. GENITALIA/RECTUM: Falcon absent. BACK/EXTREMITIES: Edema 0+ Ulcer- NEUROLOGICAL: Alert and motor intact. SKIN: Rash- Bruise- LYMPHATICS: Edema- Ulcer- LABORATORY DATA: Show hemoglobin 7.4, potassium 4. ASSESSMENT: 1. Stage 6 chronic kidney disease. We will plan hemodialysis per schedule. 2. Hypertension. 3. Anemia, stable. The patient will follow up with Dr. Joshi at [facility]
== END 2018-04-17 13:05 | disposition home or self-care (01) | DRG 682 ==
LOC: ERS 21:49 → IMCU/EMU 04-14 01:09 → ONC 04-15 12:34
PROVIDERS: ADMIT Internal Medicine; ATTEND Internal Medicine
PROC: 06HM33Z Insertion of Infusion Device into Right Femoral Vein, Percutaneous Approach (ICD-10-PCS; principal; 2018-04-14)
PROC: 30233N1 Transfusion of Nonautologous Red Blood Cells into Peripheral Vein, Percutaneous Approach (ICD-10-PCS; 2018-04-14)
PROC: 30233R1 Transfusion of Nonautologous Platelets into Peripheral Vein, Percutaneous Approach (ICD-10-PCS; 2018-04-14)
PROC: 5A1D70Z Performance of Urinary Filtration, Intermittent, Less than 6 Hours Per Day (ICD-10-PCS; 2018-04-15)
PROC: 5A1D70Z Performance of Urinary Filtration, Intermittent, Less than 6 Hours Per Day (ICD-10-PCS; 2018-04-16)
DX: I12.0 Hypertensive chronic kidney disease with stage 5 chronic kidney disease or end stage renal disease (principal); N18.6 End stage renal disease; D62 Acute posthemorrhagic anemia; E87.2 Acidosis; D69.6 Thrombocytopenia, unspecified; Z99.2 Dependence on renal dialysis; D50.9 Iron deficiency anemia, unspecified; E87.5 Hyperkalemia; Z91.15 Patient's noncompliance with renal dialysis; D63.1 Anemia in chronic kidney disease
CPT/HCPCS: 36415; 36430; 80048; 80053; 82330; 82435; 82550; 82803; 83735; 83880; 84132; 84295; 85014; 85018; 85025; 85610; 85730; 86706; 86850; 86900; 86901; 87340; 90471; 90670; 90686; 90935; 94760; C1752; G0008; G0009; G0257; J1642; J1644; J2001; J2270; J2405; J2597; P9016; P9035